=== PATIENT | male | born 1985 | race Hispanic/Latino ===

== ENCOUNTER 2023-07-27 04:02 | Emergency (ER) | payer BC, OTHER ==
[~2023-07-27] VITALS: Ht 165.1 cm; Wt 117.9 kg
[2023-07-27] MEDS ORDERED: IBUPROFEN 800 MG TAB ONE (04:40)
[2023-07-27] MEDS ORDERED: IBUPROFEN 800 MG TAB PO ONE (05:00)
[2023-07-27] MEDS ORDERED: IBUP-1493 PO (06:39)
[2023-07-27 07:05] VITALS: BP 136/82; PULSE 89; RESP 18; O2SAT 98
== END 2023-07-27 07:07 | disposition home or self-care (01) ==
LOC: EDH 04:02
DX: S82.491A Other fracture of shaft of right fibula, initial encounter for closed fracture (principal); E11.9 Type 2 diabetes mellitus without complications; X50.1XXA Overexertion from prolonged static or awkward postures, initial encounter; Y93.89 Activity, other specified; Y92.89 Other specified places as the place of occurrence of the external cause; Y99.8 Other external cause status
CPT/HCPCS: 29515; 73590; 73600